=== PATIENT | male | born 1995 | race Caucasian/White ===

== ENCOUNTER 2019-08-14 20:50 | Emergency (ER) | payer OTHER ==
[2019-08-14] MEDS ORDERED: Haloperidol Lactate 5 MG/ML SDV ONE ×4 (21:03→23:47)
[2019-08-14] MEDS ORDERED: Haloperidol Lactate 5 MG/ML SDV IM ONE ×3 (21:04→23:50)
[2019-08-14] MEDS ORDERED: Sodium Chloride 0.9% 10 ML Syringe FLUSH PRN (21:05)
[2019-08-14] MEDS ORDERED: Lactated Ringers 1,000 ML IV ONE (21:05)
[2019-08-14] MEDS ORDERED: Sodium Chloride 0.9% 2.5 ML Syringe FLUSH PRN (21:05)
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
--- NOTE | 2019-08-14 21:36 | CR ---
Chest: Supine portable view of the chest was obtained. Comparison: No previous study. Heart size and mediastinum are normal. Lungs are clear with no acute parenchymal change. No definite acute bony abnormality is appreciated. Impression: 1. Nothing acute is definitely appreciated on supine chest x-ray. Diagnostic code #1 This report was dictated in MDT
--- NOTE | 2019-08-14 21:36 | CR ---
Pelvis: AP view of the pelvis was obtained. Small portion of the pelvis not included on the exam. No discrete fracture or other abnormality is seen on this exam. Impression: 1. Less than optimal study. Nothing acute is definitely appreciated. Diagnostic code #2 This report was dictated in MDT
[2019-08-14 21:48] LABS: BLOOD UREA NITROGEN,BUN 11 mg/dL (7.0-18.0); CARBON DIOXIDE,CO2 25.7 mmol/L (21.0-32.0); CHLORIDE,CL 102 mmol/L (98-107); GLUCOSE RANDOM 127 mg/dL (74-106); POTASSIUM,K 3.6 mmol/L (3.5-5.1); SODIUM,NA 140 mmol/L (136-148)
--- NOTE | 2019-08-14 21:52 | CT ---
CT cervical spine Technique: Multiple axial sections were obtained from above C1 inferiorly to the mid T2 level. Reconstructed sagittal and coronal images were reviewed. Comparison: No prior cervical spine imaging. Findings: Vertebral body heights and disc spaces are maintained. Vertebral bodies and posterior arches are intact. No fracture is appreciated. No bony central or bony neural foraminal stenosis is seen. No abnormal subluxation is seen on the reconstructed sagittal images. Impression: 1. Nothing acute is appreciated on CT study of the cervical spine. Diagnostic code #1 This report was dictated in MDT
--- NOTE | 2019-08-14 21:53 | CT ---
Head CT Technique: Multiple axial sections through the brain were obtained. Intravenous contrast was not utilized. Comparison: No prior intracranial imaging is available. Findings: Ventricles along with basal cisterns and sulci over the convexities are within normal limits for the patient's age. No abnormal parenchymal densities are seen. No evidence of intracranial hemorrhage. No midline shift or mass-effect is seen. Visualized paranasal sinuses show nothing acute. Nothing acute is seen within the visualized mastoid sinuses. No acute calvarial finding is seen. Small radiopaque foreign body is noted within the soft tissues of the forehead which could be chronic or acute, please correlate. Impression: 1. Small scalp foreign body as noted above within the frontal region. Uncertain if this is acute or chronic. 2. No acute intracranial abnormality is otherwise seen. Diagnostic code #2 This report was dictated in MDT
--- NOTE | 2019-08-14 21:56 | CT ---
CT thoracic spine Technique: Multiple axial sections through the thoracic spine were obtained. Reconstructed coronal and sagittal images were reviewed. Comparison: No prior thoracic spine imaging. Findings: Vertebral body heights and disc spaces are maintained. Vertebral bodies and posterior arches are intact with no fracture being seen. No gross disc herniation is appreciated. No abnormal subluxation is seen. No bony central or bony neural foraminal stenosis is seen. Impression: 1. Nothing acute is appreciated on CT study of the thoracic spine. Diagnostic code #1 This report was dictated in MDT
--- NOTE | 2019-08-14 21:59 | CT ---
CT chest Technique: Multiple axial sections through the chest were obtained. Intravenous contrast was utilized. Findings: Aorta shows no aneurysm. Mediastinum and hilar region show no adenopathy or mediastinal hematoma. No pericardial fluid is seen. Visualized upper abdominal structures shows no discrete abnormality. Lung window settings shows no acute parenchymal change. No pleural effusions or pneumothorax is seen. Bone window settings were reviewed. No discrete rib fracture is appreciated. Reconstructed sagittal images shows no discrete sternal fracture. Impression: 1. Nothing acute is seen on CT study of the chest. Diagnostic code #1 This report was dictated in MDT
--- NOTE | 2019-08-14 22:10 | CT ---
CT lumbar spine Technique: Multiple axial sections through the lumbar spine were obtained. Reconstructed coronal and sagittal images were obtained. Findings: Fracture is identified within the posterior elements at L5. Fracture involves the right inferior articular mass and lamina. Fracture on the left side involves the base of the superior articular mass and lamina. No displacement is seen. No additional fracture is noted. No gross disc herniation is seen. No central canal stenosis or neural foraminal stenosis is seen. Impression: 1. Fracture is on both sides of the posterior elements of L5. Please see above for further discussion 2. No other acute findings are seen on CT study of the lumbar spine. Diagnostic code #5 This report was dictated in MDT
--- NOTE | 2019-08-14 22:14 | CT ---
CT abdomen and pelvis Technique: Multiple axial sections were obtained from above the dome of the diaphragm inferiorly to the pubic symphysis. Intravenous contrast was utilized. No oral contrast has been given. Findings: Liver contains no focal abnormality. Spleen appears normal. Adrenal glands show no nodule. Pancreas shows no abnormality. Gallbladder contains no calcified gallstones. Kidneys show symmetric contrast enhancement without hydronephrosis or mass. Aorta shows no aneurysm. No retroperitoneal adenopathy or mesenteric abnormalities are seen. No pelvic mass or adenopathy is seen. No free fluid or inflammatory change is appreciated. Appendix is visualized and appears to be normal in size. Bone window settings were reviewed which shows fractures within the posterior elements of L5 as described on lumbar spine CT. No other acute osseous finding is appreciated. Impression: 1. Fractures within the posterior elements of L5 as described on CT lumbar spine exam. 2. No other acute abnormality is appreciated on CT study of the abdomen and pelvis. Diagnostic code #2 This report was dictated in MDT
[2019-08-14] MEDS ORDERED: Iopamidol 755 Mg/ML 100 ML Bottle IVPUSH STA (22:44)
== END 2019-08-15 00:10 ==
LOC: MW.ED 20:50
DX: S32.059A Unspecified fracture of fifth lumbar vertebra, initial encounter for closed fracture (principal); S00.81XA Abrasion of other part of head, initial encounter; S80.212A Abrasion, left knee, initial encounter; S40.211A Abrasion of right shoulder, initial encounter; F10.129 Alcohol abuse with intoxication, unspecified; Y90.8 Blood alcohol level of 240 mg/100 ml or more; R45.1 Restlessness and agitation; R00.0 Tachycardia, unspecified; R41.82 Altered mental status, unspecified; V29.40XA Motorcycle driver injured in collision with unspecified motor vehicles in traffic accident, initial encounter; Y92.415 Exit ramp or entrance ramp of street or highway as the place of occurrence of the external cause
CPT/HCPCS: 36415; 70450; 71045; 71260; 72125; 72128; 72131; 72170; 74177; 80053; 80305; 80307; 83605; 84484; 85025; 85610; 85730; 86850; 86900; 86901; 93005; 96360; 96361; 96372; 99285; J1630; J7120; Q9967